=== PATIENT | female | born 1945 | race Caucasian/White ===

== ENCOUNTER → 2016-12-25 | Outpatient (CLI) | payer MEDICARE ==
--- NOTE | 2016-12-27 09:01 | MM ---
Reason for exam: screening (asymptomatic). Last mammogram was performed 3 years and 2 months ago. History: Patient is postmenopausal and is nulliparous. Family history of breast cancer in grandmother at age 82. Benign stereotactic core biopsy of the right breast, September 29, 2002. Core biopsy of the right breast. Took estrogen for 32 years. Physical Findings: A clinical breast exam by your physician is recommended on an annual basis and results should be correlated with mammographic findings. MG 3D Screening Mammo W/Cad Bilateral CC and MLO view(s) were taken. Prior study comparison: October 27, 2013, [facility] DIGITAL LEFT BREAST MAMMOGRAM w/CAD. October 16, 2013, bilateral digital screening mammo w/CAD. The breast tissue is heterogeneously dense. This may lower the sensitivity of mammography. Previous mammotome biopsy in the right breast. No significant changes when compared with prior studies. ASSESSMENT: Benign, BI-RAD 2 RECOMMENDATION: Routine screening mammogram of both breasts in 1 year.
== END | disposition home or self-care (01) ==
LOC: RADMAMWWP 14:36
PROVIDERS: ATTEND Internal Medicine
DX: Z12.31 Encounter for screening mammogram for malignant neoplasm of breast (principal)
CPT/HCPCS: 77063; G0202

== ENCOUNTER 2017-07-11 09:45 | Day surgery (SDC) | payer MEDICARE ==
[2017-07-10 12:09] VITALS: BMI 33.4
[~2017-07-11 09:45] MED LIST: LIDOCAINE 1% 20 ML VIAL (10MG/ML) FOR IV START INTRADERMA PRN
[2017-07-11 10:28] VITALS: RESP 16; TEMP 98.4
[2017-07-11] MEDS: LACTATED RINGERS 1,000 ML IV SCH ×2 (10:28→10:44)
[2017-07-11] MEDS ORDERED: MIDAZOLAM 2 MG/2 ML VIAL ONE (10:45)
[2017-07-11] MEDS ORDERED: PROPOFOL 10 MG/ML 20 ML VIAL IV ONE (10:45)
[2017-07-11] MEDS ORDERED: fentaNYL (PF) 50 MCG/ML 2 ML AMP ONE (10:45)
--- NOTE | 2017-07-11 11:08 | P.PCN ---
Date of Procedure: 07/11/17 Preoperative Diagnosis: Postoperative Diagnosis: Procedure(s) Performed: BRIEF HISTORY: Patient is a 72-year-old pleasant white female, scheduled for an elective colonoscopy as a part of screening for colonic neoplasia. PROCEDURE PERFORMED: Colonoscopy. PREOPERATIVE DIAGNOSIS: Screening for colon cancer. IV sedation per Anesthesia. PROCEDURE: After informed consent was obtained, the patient, was brought into the endoscopy unit. IV sedation was administered by Anesthesia under continuous monitoring. Digital rectal examination was normal. Initially the Olympus CF- 160 flexible video colonoscope was then inserted in the rectum, gradually advanced into the sigmoid colon and further advancement was not possible because of acute angulation in this area. The scope was removed and a pediatric colonoscope was then introduced into the rectum and gradually advanced into the cecum without any difficulty. Careful examination was performed as the scope was gradually being withdrawn. Ileocecal valve and the appendiceal orifice were visualized and appeared normal. Prep was excellent. Mucosa of the cecum, ascending colon, transverse colon, descending colon, sigmoid colon, and rectum appeared normal. Sigmoid diverticulosis seen. Retroflexion was performed in the rectum and no lesions were seen. The patient tolerated the procedure well. IMPRESSION: Normal-appearing colon from rectum to cecum with no evidence of colorectal neoplasia. Scattered sigmoid diverticulosis. RECOMMENDATIONS: Findings of this examination were discussed with the patient as well as her family. She was advised to have a repeat screening colonoscopy in 10 years. Implants: Indications for Procedure: Operative Findings: Description of Procedure:
[2017-07-11 11:58] VITALS: BP 141/79; PULSE 53
== END 2017-07-11 12:06 | disposition home or self-care (01) ==
LOC: ORWHC2ENDO 09:45
PROVIDERS: ATTEND Internal Medicine Gastroenterology
DX: Z12.11 Encounter for screening for malignant neoplasm of colon (principal); K57.30 Diverticulosis of large intestine without perforation or abscess without bleeding; Z88.2 Allergy status to sulfonamides; Z79.899 Other long term (current) drug therapy; Z88.1 Allergy status to other antibiotic agents

== ENCOUNTER 2019-04-25 09:56 | Emergency (ER) | payer MEDICARE ==
[2019-04-25 10:25] VITALS: BP 132/54; PULSE 53; RESP 16; TEMP 98.1
--- NOTE | 2019-04-25 10:55 | ED ---
General Adult HPI - General Chief complaint: Back Pain/Injury Stated complaint: poss rib pain/pulled muscle Time Seen by Provider: 04/25/19 10:16 Source: patient, RN notes reviewed Mode of arrival: ambulatory Limitations: no limitations - History of Present Illness Initial comments: Patient is a pleasant 74-year-old female presenting to the emergency Department with right sided rib discomfort. Patient states 3 days ago she was working in the yard and was putting a steak in the ground. Patient states she had sudden discomfort of her right lateral chest. Discomfort has been persistent since that time. Discomfort is increased with position changes and deep breaths. Discomfort also increases with cough. Patient has not coughed much. Patient d enies any dyspnea. No history of similar symptoms previously. No other areas of injury or concern. Patient denies anterior chest discomfort. No abdominal pain. No fevers. - Related Data Home Medications Medication Instructions Recorded Confirmed Melatonin 10 mg PO HS 12/26/14 04/25/19 Oxybutynin Chloride [Ditropan] 5 mg PO HS 12/26/14 04/25/19 Sertraline [Zoloft] 100 tab PO HS 12/26/14 04/25/19 Acetaminophen [Tylenol] 500 mg PO Q4-6H PRN 04/25/19 04/25/19 Excedrin Pm 2 tab PO HS 04/25/19 04/25/19 Multivitamins, Thera [Multivitamin 1 tab PO DAILY 04/25/19 04/25/19 (formulary)] Naproxen Sodium [Aleve] 440 mg PO Q12HR PRN 04/25/19 04/25/19 Previous Rx's Medication Instructions Recorded Orphenadrine [Norflex] 100 mg PO Q12H #12 tablet.er 04/25/19 Allergies Allergy/AdvReac Type Severity Reaction Status Date / Time erythromycin base Allergy Unknown Verified 04/25/19 10:55 Sulfa (Sulfonamide AdvReac Rash/Hives Verified 04/25/19 10:55 Antibiotics) sulfamethoxazole AdvReac Rash/Hives Verified 04/25/19 10:55 [From Bactrim] trimethoprim [From Bactrim] AdvReac Rash/Hives Verified 04/25/19 10:55 Review of Systems ROS Statement: Those systems with pertinent positive or pertinent negative responses have been documented in the HPI. ROS Other: All systems not noted in ROS Statement are negative. Constitutional: Denies: fever Eyes: Denies: eye pain ENT: Denies: ear pain Respiratory: Denies: cough, dyspnea Cardiovascular: Denies: chest pain Endocrine: Denies: fatigue Gastrointestinal: Denies: abdominal pain Genitourinary: Denies: dysuria Musculoskeletal: Reports: as per HPI Skin: Denies: rash Neurological: Denies: weakness Past Medical History Past Medical History: Fibromyalgia, Neurologic Disorder Additional Past Medical History / Comment(s): restless leg, herniated discs History of Any Multi-Drug Resistant Organisms: None Reported Past Surgical History: Appendectomy, Hernia Repair, Hysterectomy, Orthopedic Surgery Additional Past Surgical History / Comment(s): right foot surg., pain injections, sinus surg. Past Anesthesia/Blood Transfusion Reactions: Previous Problems w/ Anesthesia Additional Past Anesthesia/Blood Transfusion Reaction / Comment(s): stopped breathing w/anesthesia during pain injections @[facility].-will bring note from anesthesia from there Smoking Status: Never smoker - Past Family History Brother(s) Family Medical History: Cancer Father Additional Family Medical History / Comment(s): aortic aneurysm General Exam Limitations: no limitations General appearance: alert, in no apparent distress Head exam: Present: atraumatic, normocephalic Eye exam: Present: normal appearance, PERRL ENT exam: Present: normal oropharynx Neck exam: Present: normal inspection Respiratory exam: Present: normal lung sounds bilaterally, other (Patient does have discomfort right lateral rib somewhat posteriorly. This is near the seventh or eighth rib.) Cardiovascular Exam: Present: regular rate, normal rhythm Expanded Peripheral pulses: 2+: Radial (R), Radial (L), Dorsalis Pedis (R), Dorsalis Pedis (L) GI/Abdominal exam: Present: soft. Absent: distended, tenderness Extremities exam: Present: normal inspection. Absent: pedal edema, calf tenderness Back exam: Present: other (Mild tenderness right lateral/posterior seventh to eighth rib.) Neurological exam: Present: alert Psychiatric exam: Present: normal affect, normal mood Skin exam: Present: normal color Course Vital Signs 04/25/19 10:15 Temperature 98.1 F Pulse Rate 53 L Respiratory 16 Rate Blood Pressure 132/54 O2 Sat by Pulse 96 Oximetry Medical Decision Making - Medical Decision Making Patient reevaluated. Patient and family updated. - Radiology Data Radiology results: image reviewed (Chest x-ray shows no rib fracture. Minimal effusion on the right versus pleural reaction.) Disposition Clinical Impression: Rib sprain Disposition: HOME SELF-CARE Condition: Stable Instructions (If sedation given, give patient instructions): Chest Wall Pain (ED) Additional Instructions: Please follow-up with primary care physician in the next couple days for recheck. Return for any difficulty breathing, worsening symptoms or other concerns. Have primary care physician review chest x-ray. They may order repeat chest x-ray in the future. Continue [id number] Aleve as needed. Prescriptions: Orphenadrine [Norflex] 100 mg PO Q12H #12 tablet.er Is patient prescribed a controlled substance at d/c from ED?: No Referrals: Sameer Marcial MD [Primary Care Provider] - 1-2 days Time of Disposition: 11:42
--- NOTE | 2019-04-25 11:06 | XR ---
EXAMINATION TYPE: XR ribs RT w pa chest xray DATE OF EXAM: 04/25/2019 COMPARISON: 12/26/2014 HISTORY: Pain TECHNIQUE: Single view of the chest 4 views of the ribs are submitted. FINDINGS: The lungs are clear. No Evidence for pneumothorax. No evidence for focal contusion. Medi astinal structures are midline. Evaluation of the ribs fails to demonstrate evidence for displaced r ib fracture. There is a small pleural effusion noted versus pleural thickening. Occult rib fractures difficult to exclude. IMPRESSION: Evaluation of the ribs fails to demonstrate evidence for displaced rib fracture. There is a small pleural effusion noted versus pleural thickening. Occult rib fracture is difficult to exclud e.
[2019-04-25] MEDS ORDERED: ORPHENADRINE 30 MG/ML 2 ML VIAL IM STA (11:39)
== END 2019-04-25 12:26 | disposition home or self-care (01) ==
LOC: EC 09:56
DX: S23.41XA Sprain of ribs, initial encounter (principal); Z79.899 Other long term (current) drug therapy; Z88.1 Allergy status to other antibiotic agents; Z88.2 Allergy status to sulfonamides; X58.XXXA Exposure to other specified factors, initial encounter; Y93.H2 Activity, gardening and landscaping; Y92.007 Garden or yard of unspecified non-institutional (private) residence as the place of occurrence of the external cause
CPT/HCPCS: 71101; 99283; 96372; J2360

== ENCOUNTER → 2019-10-16 | Outpatient (CLI) | payer MEDICARE ==
--- NOTE | 2019-10-17 07:30 | BD ---
EXAMINATION TYPE: Axial Bone Density DATE OF EXAM: 10/16/2019 COMPARISON: 12.24.2007 CLINICAL HISTORY: 74 YR OLD FEMALE....ICD-10 CODE: Z78.0 POST MENOPAUSAL Height: 66 Weight: 165 FRAX RISK QUESTIONS: History of Fracture in Adulthood: YES Secondary Osteoporosis: YES 3. Menopause before 45: YES RISK FACTORS HISTORY OF: HX OF TOE FXS >50 YRS OF AGE Family History of Osteoporosis: NONE KNOWN Postmenopausal woman: YES AT AGE 27 TOTAL HYST. Take estrogen and/or progesterone medications: HRT IN PAST FOR 10 -15 YRS, NONE NOW Lost more than 2 inches in height since high school: YES Hyperparathyroidism: NO Adrenal Insufficiency: NO MEDICATIONS: Additional Medications: CITRULINE, REFLUX MEDS, VIT D, Additional History: FIBROMYALGIA, ARTHRITIS EXAM MEASUREMENTS: Bone mineral densitometry was performed using the [employer] System. Bone mineral density as measured about the Lumbar spine is: ----- L1-L4(G/cm2): 1.014 T Score Values are as follows: ----- L1: -2.6 ----- L2: -1.7 ----- L3: -0.7 ----- L4: -1.2 ----- L1-L4: -1.4 Bone mineral density has: Increased 4.4% since study of: 12.24.2007 Bone mineral density about the R hip (g/cm2): 0.736 Bone mineral density about the L hip (g/cm2): 0.723 T Score values are as follows: -----R Neck: -1.8 -----L Neck: -1.9 -----R Total: -2.2 -----L Total: -2.3 Bone mineral density has: Decreased -19.5% since study of: 12.24.2007 FRAX%s: THERE IS A 18.9% CHANCE FOR A MAJOR OSTEOPOROTIC FX AND A 4.1% FOR HIP......PROBABILITY FOR FX IN 10 YRS TIME IMPRESSION: Osteopenia lumbar spine and bilateral femora. NOTE: T-SCORE=SD OF THE YOUNG ADULT MEAN.
--- NOTE | 2019-10-20 10:39 | MM ---
Reason for exam: screening (asymptomatic). Last mammogram was performed 2 years and 10 months ago. History: Patient is postmenopausal and is nulliparous. Family history of breast cancer in grandmother at age 82. Benign stereotactic core biopsy of the right breast, September 29, 2002. Core biopsy of the right breast. Took hormonal contraceptives for 7 years. Took estrogen for 32 years. Physical Findings: A clinical breast exam by your physician is recommended on an annual basis and results should be correlated with mammographic findings. MG 3D Screening Mammo W/Cad Bilateral CC and MLO view(s) were taken. Prior study comparison: December 25, 2016, bilateral MG 3d screening mammo w/cad. October 27, 2013, [facility] DIGITAL LEFT BREAST MAMMOGRAM w/CAD. The breast tissue is heterogeneously dense. This may lower the sensitivity of mammography. No suspicious abnormality. No significant changes when compared with prior studies. ASSESSMENT: Negative, BI-RAD 1 RECOMMENDATION: Routine screening mammogram of both breasts in 1 year.
== END | disposition home or self-care (01) ==
LOC: RADMAMWWP 14:46
PROVIDERS: ATTEND Internal Medicine
DX: Z12.31 Encounter for screening mammogram for malignant neoplasm of breast (principal); M85.88 Other specified disorders of bone density and structure, other site; Z78.0 Asymptomatic menopausal state
CPT/HCPCS: 77063; 77067; 77080

== ENCOUNTER → 2021-03-10 | Outpatient (CLI) | payer MEDICARE ==
--- NOTE | 2021-03-14 14:01 | MM ---
Reason for exam: screening (asymptomatic). Last mammogram was performed 1 year and 5 months ago. History: Patient is postmenopausal and is nulliparous. Family history of breast cancer in grandmother at age 82 and breast cancer in sister at age 64. Benign stereotactic core biopsy of the right breast, September 29, 2002. Core biopsy of the right breast. Took hormonal contraceptives for 7 years. Took estrogen for 32 years. Physical Findings: A clinical breast exam by your physician is recommended on an annual basis and results should be correlated with mammographic findings. MG 3D Screening Mammo W/Cad Bilateral CC and MLO view(s) were taken. Prior study comparison: October 16, 2019, bilateral MG 3d screening mammo w/cad. December 25, 2016, bilateral MG 3d screening mammo w/cad. The breast tissue is heterogeneously dense. This may lower the sensitivity of mammography. Previous mammotome biopsy in the right breast. No significant changes when compared with prior studies. ASSESSMENT: Negative, BI-RAD 1 RECOMMENDATION: Routine screening mammogram of both breasts in 1 year.
== END | disposition home or self-care (01) ==
LOC: RADMAMWWP 13:17
PROVIDERS: ATTEND Internal Medicine
DX: Z12.31 Encounter for screening mammogram for malignant neoplasm of breast (principal); Z80.3 Family history of malignant neoplasm of breast; Z78.0 Asymptomatic menopausal state
CPT/HCPCS: 77063; 77067

== ENCOUNTER → 2021-06-17 | Outpatient (CLI) | payer MEDICARE ==
--- NOTE | 2021-06-17 17:32 | ECHOF ---
Referral Reason:[id number] dizziness MEASUREMENTS -------- HEIGHT: 172.7 cm WEIGHT: 81.2 kg BP: RVIDd: 2.2 cm (< 3.3) IVSd: 1.1 cm (0.6 - 1.1) LVIDd: 4.4 cm (3.9 - 5.3) LVPWd: 1.1 cm (0.6 - 1.1) IVSs: 1.9 cm LVIDs: 1.7 cm LVPWs: 2.2 cm LAESV Index (A-L): 24.61 ml/m Ao Diam: 3.0 cm (2.0 - 3.7) AV Cusp: 1.7 cm (1.5 - 2.6) LA Diam: 3.3 cm (2.7 - 3.8) MV EXCURSION: 14.991 mm (> 18.000) MV EF SLOPE: 118 mm/s (70 - 150) EPSS: 1.3 cm MV E Isael: 0.68 m/s MV DecT: 235 ms MV A Isael: 0.76 m/s MV E/A Ratio: 0.89 RAP: 5.00 mmHg RVSP: 20.21 mmHg FINDINGS -------- This was a technically good study. The left ventricular size is normal. Left ventricular wall thickness is normal. Overall left vent ricular systolic function is normal with, an EF between 55 - 60 %. Normal LAP Grade 1 Diastolic Dys function The right ventricle is normal in size. The left atrial size is normal. Normal LA size by volume 22+/-6 ml/m2. The right atrial size is normal. Interatrial and interventricular septum intact. Aortic valve is trileaflet and is mildly thickened. The mitral valve leaflets are mildly thickened. Moderate mitral regurgitation is present. There i s moderate posterior mitral valve prolapse. The tricuspid valve appears structurally normal. Mild tricuspid regurgitation present. Right vent ricular systolic pressure is normal at < 35 mmHg. There is no pulmonic regurgitation present. The aortic root size is normal. Normal inferior vena cava with normal inspiratory collapse consistent with estimated right atrial pre ssure of 5 mmHg. There is no pericardial effusion. CONCLUSIONS -------- 1. The left ventricular size is normal. 2. Left ventricular wall thickness is normal. 3. Overall left ventricular systolic function is normal with, an EF between 55 - 60 %. 4. Normal LAP Grade 1 Diastolic Dysfunction 5. Aortic valve is trileaflet and is mildly thickened. 6. The mitral valve leaflets are mildly thickened. 7. Moderate mitral regurgitation is present. 8. There is moderate posterior mitral valve prolapse. 9. Mild tricuspid regurgitation present. 10. There is no pericardial effusion. ADMINISTRATIVE SUPPORT ASSOC: Olena Mays RDCS
== END | disposition home or self-care (01) ==
LOC: RADECHMAIN 11:23
PROVIDERS: ATTEND Family Medicine
DX: I08.1 Rheumatic disorders of both mitral and tricuspid valves (principal)
CPT/HCPCS: 93306

== ENCOUNTER → 2022-07-07 | Outpatient (CLI) | payer MEDICARE ==
--- NOTE | 2022-07-10 08:59 | MM ---
Reason for Exam: Screening (asymptomatic). Last mammogram was performed 1 year(s) and 4 month(s) ago. Patient History: Menarche at age 14. Patient has no children. Left ovary removed at age 27. Right ovary removed at age 27. Hysterectomy at age 27. Postmenopausal. Patient used Estrogen for 32 years. Patient used Hormonal Contraceptives for 7 years. Core Biopsy on the Right side. 09/29/2002, Benign Stereotactic Core Biopsy on the right side. Maternal grandmother had breast cancer, age 82. Paternal cousin had breast cancer, age 72. Sister had breast cancer, age 64. Risk Values: Manjula 5 year model risk: 5.2%. NCI Lifetime model risk: 10.3%. Prior Study Comparison: 12/25/2016 Bilateral Screening Mammogram, [facility]. 10/16/2019 Bilateral Screening Mammogram, [facility]. 03/10/2021 Bilateral Screening Mammogram, [facility]. Tissue Density: The breast tissue is heterogeneously dense. This may lower the sensitivity of mammography. Findings: Analyzed By CAD. There is no suspicious group of microcalcifications or new suspicious mass in either breast. Previous mammotome biopsy in the right breast. No significant change from prior exams. Overall Assessment: Benign, BI-RAD 2 Management: Screening Mammogram of both breasts in 1 year. A clinical breast exam by your physician is recommended on an annual basis and results should be correlated with mammographic findings. Electronically signed and approved by: Genaro Escalera D.O.
== END | disposition home or self-care (01) ==
LOC: RADMAMWWP 14:27
PROVIDERS: ATTEND Family Medicine
DX: Z12.31 Encounter for screening mammogram for malignant neoplasm of breast (principal); Z78.0 Asymptomatic menopausal state; Z80.3 Family history of malignant neoplasm of breast
CPT/HCPCS: 77063; 77067

== ENCOUNTER 2022-10-05 14:26 | Observation (INO) | payer MEDICARE ==
--- NOTE | 2022-10-05 15:23 | ED ---
General Adult HPI - General Chief complaint: Chest Pain Stated complaint: Chest pain Time Seen by Provider: 10/05/22 14:36 Source: patient Mode of arrival: ambulatory Limitations: no limitations - History of Present Illness Initial comments: Dictation was produced using [employer] dictation software. please excuse any grammatical, word or spelling errors. Chief Complaint: 77-year-old female past medical history of fibromyalgia presents to the emergency department for chest pressure History of Present Illness: Patient is a 77-year-old female she has past medical history of mitral valve prolapse, fibromyalgia and reflux. Interval last 4 days she's been having intermittent bouts of chest pressure. She says is substernal radiates to her back. She states that is mild. Nonradiating. Not associated with nausea or diaphoresis. Patient is no history of coronary artery disease. She does complain of some mild exertional dyspnea. The ROS documented in this emergency department record has been reviewed and confirmed by me. Those systems with pertinent positive or negative responses have been documented in the HPI. All other systems are other negative and/or noncontributory. PHYSICAL EXAM: General Impression: Alert and oriented x3, not in acute distress HEENT: Normocephalic atraumatic, extra-ocular movements intact, pupils equal and reactive to light bilaterally, mucous membranes moist. Cardiovascular: Heart regular rate and rhythm Chest: Able to complete full sentences, no retractions, no tachypnea Abdomen: abdomen soft, non-tender, non-distended, no organomegaly Musculoskeletal: Pulses present and equal in all extremities, no peripheral edema Motor: no focal deficits noted Neurological: CN II-XII grossly intact, no focal motor or sensory deficits noted Skin: Intact with no visualized rashes Psych: Normal affect and mood ED course: 77-year-old female presents emergency department for shortness of breath and chest pressure clinical presentation is atypical with typical features. Vital signs upon arrival are within acceptable limits. EKG does not show any signs of ischemia or infarction. My EKG interpretation: Ventricular rate 55, sinus bradycardia,. Interval 154, care is 109, QTC 418. No OK prolongation, no QTC prolongation, no ST or T-wave changes noted. Overall, this EKG is unremarkable Laboratory evaluation obtained per it CBC, metabolic panel is unremarkable. Coag panel is negative. D-dimer 0.61 which is normal quite age-adjusted d- dimer. Troponin is negative. Chest x-ray is nonacute. Patient reevaluated at bedside at 6:20 PM found to be stable medical condition. Patient be admitted to observation for cardiac monitoring, cardiology consultation. Admitted to [facility] physician. - Related Data Home Medications Medication Instructions Recorded Confirmed Oxybutynin Chloride [Ditropan] 10 mg PO HS 12/26/14 10/05/22 Calcium(Unknown Dose) 1 tab PO DAILY 10/05/22 10/05/22 DULoxetine HCL [Cymbalta] 60 mg PO HS 10/05/22 10/05/22 Elderberry/Zinc/Vitamin D3 Chew 2 tab PO DAILY 10/05/22 10/05/22 Magnesium(Unknown Dose) 1 tab PO DAILY 10/05/22 10/05/22 Vitamin B Complex 1 cap PO DAILY 10/05/22 10/05/22 Vitamin D3(Unknown Dose) 2 cap PO DAILY 10/05/22 10/05/22 Allergies Allergy/AdvReac Type Severity Reaction Status Date / Time erythromycin base Allergy Unknown Verified 10/05/22 16:24 Sulfa (Sulfonamide Allergy Rash/Hives Verified 10/05/22 16:24 Antibiotics) & Nausea sulfamethoxazole Allergy Rash/Hives Verified 10/05/22 16:24 [From Bactrim] & Nausea trimethoprim [From Bactrim] Allergy Rash/Hives Verified 10/05/22 16:24 & Nausea Review of Systems ROS Statement: Those systems with pertinent positive or pertinent negative responses have been documented in the HPI. ROS Other: All systems not noted in ROS Statement are negative. Past Medical History Past Medical History: Fibromyalgia, GERD/Reflux, Neurologic Disorder Additional Past Medical History / Comment(s): restless leg, herniated discs History of Any Multi-Drug Resistant Organisms: None Reported Past Surgical History: Appendectomy, Hernia Repair, Hysterectomy, Orthopedic Surgery Additional Past Surgical History / Comment(s): right foot surg., pain injections, sinus surg. Past Anesthesia/Blood Transfusion Reactions: Previous Problems w/ Anesthesia Additional Past Anesthesia/Blood Transfusion Reaction / Comment(s): stopped breathing w/anesthesia during pain injections @[facility].-will bring note from anesthesia from there Smoking Status: Current every day smoker Past Alcohol Use History: None Reported Past Drug Use History: None Reported - Past Family History Brother(s) Family Medical History: Cancer Father Additional Family Medical History / Comment(s): aortic aneurysm General Exam Limitations: no limitations Course Vital Signs 10/05/22 10/05/22 10/05/22 14:30 15:45 15:50 Temperature 98.4 F Pulse Rate 63 56 L Respiratory 20 18 18 Rate Blood Pressure 154/86 130/81 O2 Sat by Pulse 96 96 Oximetry 10/05/22 10/05/22 17:00 18:20 Temperature Pulse Rate 55 L 52 L Respiratory 15 16 Rate Blood Pressure 140/51 137/82 O2 Sat by Pulse 99 100 Oximetry Medical Decision Making - Lab Data Result diagrams: 10/05/22 15:45 10/05/22 15:45 Lab Results 10/05/22 10/05/22 10/05/22 Range/Units 15:45 15:45 15:45 WBC 4.2 (3.8-10.6) k/uL RBC 3.80 (3.80-5.40) m/uL Hgb 12.8 (11.4-16.0) gm/dL Hct 37.2 (34.0-46.0) % MCV 97.9 (80.0-100.0) fL MCH 33.6 (25.0-35.0) pg MCHC 34.4 (31.0-37.0) g/dL RDW 11.9 (11.5-15.5) % Plt Count 162 (150-450) k/uL MPV 8.2 Neutrophils % 62 % Lymphocytes % 26 % Monocytes % 6 % Eosinophils % 2 % Basophils % 1 % Neutrophils # 2.6 (1.3-7.7) k/uL Lymphocytes # 1.1 (1.0-4.8) k/uL Monocytes # 0.3 (0-1.0) k/uL Eosinophils # 0.1 (0-0.7) k/uL Basophils # 0.0 (0-0.2) k/uL PT 10.1 (9.0-12.0) sec INR 0.9 (<1.2) APTT 22.5 (22.0-30.0) sec D-Dimer 0.61 H (<0.60) mg/L FEU Sodium 138 (137-145) mmol/L Potassium 4.4 (3.5-5.1) mmol/L Chloride 108 H (98-107) mmol/L Carbon Dioxide 25 (22-30) mmol/L Anion Gap 5 mmol/L BUN 19 H (7-17) mg/dL Creatinine 0.63 (0.52-1.04) mg/dL Est GFR (CKD-EPI)AfAm >90 (>60 ml/min/1.73 sqM) Est GFR (CKD-EPI)NonAf 87 (>60 ml/min/1.73 sqM) Glucose 98 (74-99) mg/dL Calcium 9.2 (8.4-10.2) mg/dL Total Bilirubin 0.2 (0.2-1.3) mg/dL AST 23 (14-36) U/L ALT 14 (4-34) U/L Alkaline Phosphatase 62 (38-126) U/L Troponin I (0.000-0.034) ng/mL Total Protein 6.2 L (6.3-8.2) g/dL Albumin 3.9 (3.5-5.0) g/dL 10/05/22 Range/Units 15:45 WBC (3.8-10.6) k/uL RBC (3.80-5.40) m/uL Hgb (11.4-16.0) gm/dL Hct (34.0-46.0) % MCV (80.0-100.0) fL MCH (25.0-35.0) pg MCHC (31.0-37.0) g/dL RDW (11.5-15.5) % Plt Count (150-450) k/uL MPV Neutrophils % % Lymphocytes % % Monocytes % % Eosinophils % % Basophils % % Neutrophils # (1.3-7.7) k/uL Lymphocytes # (1.0-4.8) k/uL Monocytes # (0-1.0) k/uL Eosinophils # (0-0.7) k/uL Basophils # (0-0.2) k/uL PT (9.0-12.0) sec INR (<1.2) APTT (22.0-30.0) sec D-Dimer (<0.60) mg/L FEU Sodium (137-145) mmol/L Potassium (3.5-5.1) mmol/L Chloride (98-107) mmol/L Carbon Dioxide (22-30) mmol/L Anion Gap mmol/L BUN (7-17) mg/dL Creatinine (0.52-1.04) mg/dL Est GFR (CKD-EPI)AfAm (>60 ml/min/1.73 sqM) Est GFR (CKD-EPI)NonAf (>60 ml/min/1.73 sqM) Glucose (74-99) mg/dL Calcium (8.4-10.2) mg/dL Total Bilirubin (0.2-1.3) mg/dL AST (14-36) U/L ALT (4-34) U/L Alkaline Phosphatase (38-126) U/L Troponin I <0.012 (0.000-0.034) ng/mL Total Protein (6.3-8.2) g/dL Albumin (3.5-5.0) g/dL Disposition Clinical Impression: Chest pain Disposition: ADMITTED IP TO THIS [facility] Condition: Fair Referrals: None,Stated [Primary Care Provider] - 1-2 days Decision Time: 18:22
--- NOTE | 2022-10-05 16:14 | XR ---
EXAMINATION TYPE: XR chest 2V DATE OF EXAM: 10/05/2022 COMPARISON: Chest x-ray April 25, 2019 HISTORY: Chest pressure and dyspnea. TECHNIQUE: Frontal and lateral views of the chest are obtained. FINDINGS: There is mild chronic parenchymal change bilaterally without suspicious focal air space op acity, pleural effusion, or pneumothorax seen. The cardiac silhouette size is upper limits of normal . Overlying EKG leads on current study. The osseous structures are somewhat demineralized. IMPRESSION: Chronic changes without acute pulmonary process.
[2022-10-05 16:24] LABS: Basophils % (A) 1 %; Eosinophils # (A) 0.1 k/uL (0-0.7); Eosinophils % (A) 2 %; HCT 37.2 % (34.0-46.0); HGB 12.8 gm/dL (11.4-16.0); Lymphocytes # (A) 1.1 k/uL (1.0-4.8); Lymphocytes % (A) 26 %; MCH 33.6 pg (25.0-35.0); MCHC 34.4 g/dL (31.0-37.0); MCV 97.9 fL (80.0-100.0); Mean Platelet Volume 8.2; Monocytes # (A) 0.3 k/uL (0-1.0); Monocytes % (A) 6 %; Neutrophils # (A) 2.6 k/uL (1.3-7.7); Neutrophils % (A) 62 %; Platelet Count 162 k/uL (150-450); RDW 11.9 % (11.5-15.5); WBC 4.2 k/uL (3.8-10.6)
[2022-10-05 16:41] LABS: INR 0.9 (<1.2); Partial Thromboplastin Time 22.5 sec (22.0-30.0); Prothrombin Time 10.1 sec (9.0-12.0)
[2022-10-05 16:43] LABS: ALT 14 U/L (4-34); AST 23 U/L (14-36); African American GFR (CKD) >90 (>60 ml/min/1.73 sqM); Albumin 3.9 g/dL (3.5-5.0); Alkaline Phosphatase 62 U/L (38-126); Anion Gap 5 mmol/L; Blood Urea Nitrogen 19 mg/dL (7-17); Calcium 9.2 mg/dL (8.4-10.2); Carbon Dioxide 25 mmol/L (22-30); Chloride 108 mmol/L (98-107); Glucose 98 mg/dL (74-99); Non-African American GFR(CKD) 87 (>60 ml/min/1.73 sqM); Potassium 4.4 mmol/L (3.5-5.1); Sodium 138 mmol/L (137-145); Total Bilirubin 0.2 mg/dL (0.2-1.3); Total Protein 6.2 g/dL (6.3-8.2)
[2022-10-05] MEDS ORDERED: NITROGLYCERIN SL TABS 0.4 MG TAB SUBLINGUAL PRN (18:20)
[2022-10-05] MEDS ORDERED: ASPIRIN 81 MG PO STA (18:20)
[2022-10-06] MEDS ORDERED: DULoxetine HCL 60 MG CAPSULE.DR PO SCH (00:15)
[2022-10-06] MEDS ORDERED: OXYBUTYNIN CHLORIDE 5 MG TAB PO SCH (00:15)
[2022-10-06] MEDS ORDERED: ATORVASTATIN 80 MG TAB PO SCH (02:42)
--- NOTE | 2022-10-06 02:43 | P.HPIM ---
History of Present Illness H&P Date: 10/05/22 The patient is a 77-year-old female with a PMH of recently diagnosed mitral valve prolapse, fibromyalgia, and GERD who presents to the emergency room with complaints of chest discomfort. The patient reports that she's been experiencing intermittent chest discomfort with a past 5-6 days. She reports it is located on her left upper chest, pressure and aching in nature, nonradiating, 5 out of 10 on maximal intensity, occurring several times daily, lasting for a few minutes at a time, nonexertional, with no alleviating or exacerbating features. She reports associated shortness of breath but denied nausea, vomiting, diaphoresis, palpitations. Denied fever, chills, cough, abdominal p ain, diarrhea. The EKG in the emergency room revealed sinus bradycardia at 55 bpm with left axis deviation. Chest x-ray was unremarkable. Laboratory evaluation revealed a troponin of less than 0.012 with d-dimer 0.61. Review of systems: Pertinent positives and negatives as discussed in HPI, a complete review of systems was performed and all other systems are negative. Physical examination: General: non toxic, no distress, appears at stated age, normal weight Derm: no unusual rashes/lesions, warm Head: atraumatic, normocephalic, symmetric Eyes: EOMI, no lid lag, anicteric sclera, pupils equal round reactive to light ENT: Nose and ears atraumatic Neck: No cervical lymphadenopathy, trachea midline, supple Mouth: no lip lesion, mucus membranes moist Cardiovascular: S1S2 reg, no murmur, positive dorsalis pedis pulse bilateral, no edema Lungs: CTA bilateral, no rhonchi, no rales, no accessory muscle use Abdominal: soft, nontender to palpation, no guarding Ext: muscle strength 5 out of 5 in all 4 extremities grossly, no gross muscle atrophy, no contractures, Neuro: CN II-XI grossly intact, no gross focal neuro deficits Psych: Alert, oriented, appropriate affect Assessment/plan Chest pain, rule out ACS -Cardiology consulted -Trend troponin -Cardiac monitoring -Continue with aspirin, statin Elevated d-dimer -Normal for age adjusted levels DVT prophylaxis -Heparin subcu The patient is admitted with an anticipated less than 2 midnight stay for evaluation of chest pain CODE STATUS: Full Code Discussed with: Patient Anticipated discharge date: in am Anticipated discharge place: Home Past Medical History Past Medical History: Chest Pain / Angina, Fibromyalgia, GERD/Reflux, Mitral Valve Prolapse (MVP), Neurologic Disorder Additional Past Medical History / Comment(s): restless leg, herniated d iscs,vertigo History of Any Multi-Drug Resistant Organisms: None Reported Past Surgical History: Appendectomy, Hernia Repair, Hysterectomy, Orthopedic Surgery Additional Past Surgical History / Comment(s): right foot surg., pain injections, sinus surg. Past Anesthesia/Blood Transfusion Reactions: Previous Problems w/ Anesthesia Additional Past Anesthesia/Blood Transfusion Reaction / Comment(s): stopped breathing w/anesthesia during pain injections @[facility]. Past Psychological History: Depression Smoking Status: Never smoker Past Alcohol Use History: None Reported Past Drug Use History: None Reported - Past Family History Brother(s) Family Medical History: Cancer Father Additional Family Medical History / Comment(s): aortic aneurysm Medications and Allergies Home Medications Medication Instructions Recorded Confirmed Type Oxybutynin Chloride [Ditropan] 10 mg PO HS 12/26/14 10/05/22 History Calcium(Unknown Dose) 1 tab PO DAILY 10/05/22 10/05/22 History DULoxetine HCL [Cymbalta] 60 mg PO HS 10/05/22 10/05/22 History Elderberry/Zinc/Vitamin D3 Chew 2 tab PO DAILY 10/05/22 10/05/22 History Magnesium(Unknown Dose) 1 tab PO DAILY 10/05/22 10/05/22 History Vitamin B Complex 1 cap PO DAILY 10/05/22 10/05/22 History Vitamin D3(Unknown Dose) 2 cap PO DAILY 10/05/22 10/05/22 History Allergies Allergy/AdvReac Type Severity Reaction Status Date / Time erythromycin base Allergy Unknown Verified 10/05/22 16:24 Sulfa (Sulfonamide Allergy Rash/Hives Verified 10/05/22 16:24 Antibiotics) & Nausea sulfamethoxazole Allergy Rash/Hives Verified 10/05/22 16:24 [From Bactrim] & Nausea trimethoprim [From Bactrim] Allergy Rash/Hives Verified 10/05/22 16:24 & Nausea Physical Exam Vitals: Vital Signs Temp Pulse Pulse Resp BP BP Pulse Ox 10/05/22 19:58 98.6 F 57 L 19 173/77 97 10/05/22 18:20 52 L 16 137/82 100 10/05/22 17:00 55 L 15 140/51 99 10/05/22 15:50 56 L 18 130/81 96 10/05/22 15:45 18 10/05/22 14:30 98.4 F 63 20 154/86 96 Intake and Output 10/05/22 10/05/22 10/06/22 14:59 22:59 06:59 Other: Weight 90.718 kg 90.718 kg Results CBC & Chem 7: 10/05/22 15:45 10/05/22 15:45 Labs: Abnormal Lab Results - Last 24 Hours (Table) 10/05/22 10/05/22 Range/Units 15:45 15:45 D-Dimer 0.61 H (<0.60) mg/L FEU Chloride 108 H (98-107) mmol/L BUN 19 H (7-17) mg/dL Total Protein 6.2 L (6.3-8.2) g/dL Thrombosis Risk Factor Assmnt - Choose All That Apply Any of the Below Risk Factors Present?: Yes Each Factor Represents 1 point: Obesity (BMI >25) Other Risk Factors: Yes Each Risk Factor Represents 3 Points: Age 75 years or older Other congenital or acquired thrombophilia - If yes, enter type in comment: No Thrombosis Risk Factor Assessment Total Risk Factor Score: 4 Thrombosis Risk Factor Assessment Level: Moderate Risk
[2022-10-06] MEDS ORDERED: HEPARIN SODIUM,PORCINE/PF 5,000 UNIT/0.5 ML SYRINGE SQ SCH (08:00)
[2022-10-06] MEDS ORDERED: CAFFEINE CITRATE 60 MG/3 ML VIAL IV PRN (08:05)
[2022-10-06] MEDS ORDERED: AMINOPHYLLINE 500 MG/20 ML VIAL IV PRN (08:05)
[2022-10-06] MEDS ORDERED: REGADENOSON 0.4 MG/5 ML SYRINGE IV PRN (08:05)
[2022-10-06 08:52] LABS: Chol/HDL Ratio 3.39 Ratio; LDL Cholesterol,Calculated 118.8 mg/dL (0.0-131.0)
[2022-10-06] MEDS ORDERED: ASPIRIN 325 MG TAB PO SCH (09:00)
[2022-10-06] MEDS ORDERED: ASPIRIN 81 MG PO SCH (09:00)
--- NOTE | 2022-10-06 09:23 | P.CRDCN ---
History of Present Illness History of present illness: HISTORY OF PRESENT ILLNESS: This is a 77-year-old female with a past medical history significant for mitral regurgitation and fibromyalgia. Patient follows in the office with Dr. Del Angel. We have been asked to see the patient in consultation for chest pain. Patient ex amined at the bedside. Patient presented to the emergency room a chief complaint of chest pain. She states she has been having chest discomfort for the past 4-5 days. She describes the pain as a pressure type sensation in the middle of her chest. She states it radiates in between her shoulder blades sometimes. She denies having associated shortness of breath. She does report the pain is worse with exertion. She denies a history of coronary artery disease. * EKG reveals sinus mechanism with no signs of acute ischemia * Chest xray chronic changes without acute pulmonary process * Laboratory data: WBC 4.2. Hemoglobin 12.8. Platelet count 162. * Current home cardiac medications include none * Most recent echocardiogram obtained in May 2021 revealed ejection fraction 55-60% with moderate mitral regurgitation, moderate posterior mitral valve prolapse, and mild tricuspid regurgitation * Patient during Lexiscan stress test in August 2021 which was negative for ischemia REVIEW OF SYSTEMS: At the time of my exam: CONSTITUTIONAL: Denies fever or chills. HEENT: Denies blurred vision, vision changes, or eye pain. Denies hemoptysis CARDIOVASCULAR: Denies chest pain. Denies orthopnea. Denies PND. Denies palpitations RESPIRATORY: Denies shortness of breath. GASTROINTESTINAL: Denies abdominal pain. Denies nausea or vomiting. HEMATOLOGIC: Denies bleeding disorders. GENITOURINARY: Denies any blood in urine. SKIN: Denies pruitis. Denies rash. PHYSICAL EXAM: VITAL SIGNS: Reviewed. GENERAL: Well-developed in no acute distress. HEENT: Head is normocephalic. Pupils are equal, round. Sclerae anicteric. Mucous membranes of the mouth are moist. Neck supple. No JVD or thyromegaly LUNGS: Respirations even and unlabored. Lungs essentially clear to auscultation bilaterally. HEART: Regular rate and rhythm. S1 and S2 heard. Systolic murmur noted ABDOMEN: Soft. Nondistended. Nontender. EXTREMITIES: Normal range of motion. No clubbing or cyanosis. Peripheral pulses intact. No lower extremity edema NEUROLOGIC: Awake and alert. Oriented x 3. ASSESSMENT: Chest pain, troponins negative 3 Mitral regurgitation Fibromyalgia PLAN: An acute coronary event has been ruled out Obtain 2-D echo to assess cardiac structure and function Decrease aspirin to 81 mg daily Patient will undergo Lexiscan stress test today. If negative, she may be discharged home from a cardiac standpoint Nurse practitioner note has been reviewed by physician. Signing provider agrees with the documented findings, assessment, and plan of care. Past Medical History Past Medical History: Chest Pain / Angina, Fibromyalgia, GERD/Reflux, Mitral Valve Prolapse (MVP), Neurologic Disorder Additional Past Medical History / Comment(s): restless leg, herniated discs,vertigo History of Any Multi-Drug Resistant Organisms: None Reported Past Surgical History: Appendectomy, Hernia Repair, Hysterectomy, Orthopedic Surgery Additional Past Surgical History / Comment(s): right foot surg., pain injections, sinus surg. Past Anesthesia/Blood Transfusion Reactions: Previous Problems w/ Anesthesia Additional Past Anesthesia/Blood Transfusion Reaction / Comment(s): stopped breathing w/anesthesia during pain injections @[facility]. Past Psychological History: Depression Smoking Status: Never smoker Past Alcohol Use History: None Reported Past Drug Use History: None Reported - Past Family History Brother(s) Family Medical History: Cancer Father Additional Family Medical History / Comment(s): aortic aneurysm Medications and Allergies Home Medications Medication Instructions Recorded Confirmed Type Oxybutynin Chloride [Ditropan] 10 mg PO HS 12/26/14 10/05/22 History Calcium(Unknown Dose) 1 tab PO DAILY 10/05/22 10/05/22 History DULoxetine HCL [Cymbalta] 60 mg PO HS 10/05/22 10/05/22 History Elderberry/Zinc/Vitamin D3 Chew 2 tab PO DAILY 10/05/22 10/05/22 History Magnesium(Unknown Dose) 1 tab PO DAILY 10/05/22 10/05/22 History Vitamin B Complex 1 cap PO DAILY 10/05/22 10/05/22 History Vitamin D3(Unknown Dose) 2 cap PO DAILY 10/05/22 10/05/22 History Allergies Allergy/AdvReac Type Severity Reaction Status Date / Time erythromycin base Allergy Unknown Verified 10/05/22 16:24 Sulfa (Sulfonamide Allergy Rash/Hives Verified 10/05/22 16:24 Antibiotics) & Nausea sulfamethoxazole Allergy Rash/Hives Verified 10/05/22 16:24 [From Bactrim] & Nausea trimethoprim [From Bactrim] Allergy Rash/Hives Verified 10/05/22 16:24 & Nausea Physical Exam Vitals: Vital Signs Temp Pulse Pulse Resp BP BP Pulse Ox 10/06/22 07:00 97.9 F 48 L 14 146/68 97 10/06/22 02:08 97.9 F 57 L 17 147/62 97 10/05/22 19:58 98.6 F 57 L 19 173/77 97 10/05/22 18:20 52 L 16 137/82 100 10/05/22 17:00 55 L 15 140/51 99 10/05/22 15:50 56 L 18 130/81 96 10/05/22 15:45 18 10/05/22 14:30 98.4 F 63 20 154/86 96 Intake and Output 10/05/22 10/06/22 10/06/22 22:59 06:59 14:59 Other: # Voids 1 1 Weight 90.718 kg Results 10/05/22 15:45 10/05/22 15:45 Cardiac Enzymes 10/05/22 10/05/22 10/05/22 Range/Units 15:45 15:45 19:01 AST 23 (14-36) U/L Troponin I <0.012 <0.012 (0.000-0.034) ng/mL 10/05/22 Range/Units 22:44 AST (14-36) U/L Troponin I <0.012 (0.000-0.034) ng/mL Coagulation 10/05/22 Range/Units 15:45 PT 10.1 (9.0-12.0) sec APTT 22.5 (22.0-30.0) sec CBC 10/05/22 Range/Units 15:45 WBC 4.2 (3.8-10.6) k/uL RBC 3.80 (3.80-5.40) m/uL Hgb 12.8 (11.4-16.0) gm/dL Hct 37.2 (34.0-46.0) % Plt Count 162 (150-450) k/uL Comprehensive Metabolic Panel 10/05/22 Range/Units 15:45 Sodium 138 (137-145) mmol/L Potassium 4.4 (3.5-5.1) mmol/L Chloride 108 H (98-107) mmol/L Carbon Dioxide 25 (22-30) mmol/L BUN 19 H (7-17) mg/dL Creatinine 0.63 (0.52-1.04) mg/dL Glucose 98 (74-99) mg/dL Calcium 9.2 (8.4-10.2) mg/dL AST 23 (14-36) U/L ALT 14 (4-34) U/L Alkaline Phosphatase 62 (38-126) U/L Total Protein 6.2 L (6.3-8.2) g/dL Albumin 3.9 (3.5-5.0) g/dL Current Medications Generic Name Dose Route Start Last Admin Trade Name Freq PRN Reason Stop Dose Admin Aspirin 325 mg 10/06/22 09:00 Aspirin 325 Mg Tab PO DAILY [facility] Atorvastatin Calcium 80 mg 10/06/22 02:42 10/06/22 03:31 Atorvastatin 80 Mg Tab PO Not Given HS JULEE Duloxetine HCl 60 mg 10/06/22 00:15 10/06/22 00:29 Duloxetine Hcl 60 Mg Capsule.Dr PO 60 mg HS JULEE Administration Heparin Sodium (Porcine) 5,000 unit 10/06/22 08:00 Heparin Sodium,Porcine/Pf 5,000 Unit/0.5 Ml Syringe SQ Q8HR JULEE Nitroglycerin 0.4 mg 10/05/22 18:20 Nitroglycerin Sl Tabs 0.4 Mg Tab SUBLINGUAL Q5M PRN Chest Pain Oxybutynin Chloride 10 mg 10/06/22 00:15 10/06/22 00:29 Oxybutynin Chloride 5 Mg Tab PO 10 mg HS JULEE Administration Intake and Output 10/05/22 10/06/22 10/06/22 22:59 06:59 14:59 Other: # Voids 1 1 Weight 90.718 kg 10/05/22 15:45 10/05/22 15:45
--- NOTE | 2022-10-06 11:38 | NM ---
EXAMINATION TYPE: NM stress lexiscan cardiolite DATE OF EXAM: 10/06/2022 COMPARISON: NONE HISTORY: Chest pain. Family history of heart attack. TECHNIQUE: After the intravenous administration of 10 mCi Tc 99m Sestamibi - Cardiolite resting SPEC T images acquired 50 minutes post injection. The patient received 0.4mg Lexiscan, 24.5 mCi Tc 99m Sestamibi - Stress images obtained [address] injection FINDINGS: Review of stress and rest SPECT images demonstrates no distinct perfusion abnormality. Gated analysi s shows normal wall motion with an estimated left ventricular ejection fraction of 61 %. IMPRESSION: No scintigraphic evidence for reversible ischemia.
[2022-10-06 14:10] VITALS: BP 129/70; PULSE 60; RESP 15; TEMP 98.1
--- NOTE | 2022-10-06 14:22 | P.DS ---
Providers Date of admission: 10/05/22 18:20 Expected date of discharge: 10/06/22 Attending physician: Edilson Castano MD Consults: 10/05/22 18:20 Consult Physician Urgent Consulting Provider: Daniel Shukla Consult Reason/Comments: chest pain Do you want consulting provider notified?: Yes Primary care physician: Stated None Hospital Course: Discharge Diagnosis: Acute chest pain Fibromyalgia GERD Hospital Course: 77-year-old female with a PMH of recently diagnosed mitral valve prolapse, fibromyalgia, and GERD presented with chest discomfort. EKG showed sinus bradycardia with left axis deviation. Chest x-ray showed no acute process. Troponin negative. D-dimer elevated, but normal for age. Cardiology consulted. Stress test negative. Echo report not available at discharge. However, stress test showed normal wall motion with an estimated LVEF of 61%. Patient cleared for discharge per cardiology. Patient seen and examined at bedside. Vital signs reviewed and stable. General: nontoxic, no distress, appears at stated age Derm: warm, dry Head: atraumatic, normocephalic, symmetric Eyes: EOMI, no lid lag, anicteric sclera Mouth: no lip lesion, mucus membranes moist Cardiovascular: S1S2 reg, no murmur Lungs: CTA bilateral, no rhonchi, no rales , no accessory muscle use Abdominal: soft, nontender to palpation, no guarding, no appreciable organomegaly Ext: no gross muscle atrophy, no edema, no contractures Neuro: CN II-XI grossly intact, no focal neuro deficits Psych: Alert, oriented, appropriate affect A total of 41 minutes of time were spent preparing this complex discharge summary. Patient was discharged on 10/06/22 at 14:19. Patient Condition at Discharge: Stable Plan - Discharge Summary New Discharge Prescriptions: Continue Oxybutynin Chloride [Ditropan] 10 mg PO HS Calcium(Unknown Dose) 1 tab PO DAILY Magnesium(Unknown Dose) 1 tab PO DAILY Elderberry/Zinc/Vitamin D3 Chew 2 tab PO DAILY Vitamin B Complex 1 cap PO DAILY Vitamin D3(Unknown Dose) 2 cap PO DAILY DULoxetine HCL [Cymbalta] 60 mg PO HS Discharge Medication List Oxybutynin Chloride [Ditropan] 10 mg PO HS 12/26/14 [History] Calcium(Unknown Dose) 1 tab PO DAILY 10/05/22 [History] DULoxetine HCL [Cymbalta] 60 mg PO HS 10/05/22 [History] Elderberry/Zinc/Vitamin D3 Chew 2 tab PO DAILY 10/05/22 [History] Magnesium(Unknown Dose) 1 tab PO DAILY 10/05/22 [History] Vitamin B Complex 1 cap PO DAILY 10/05/22 [History] Vitamin D3(Unknown Dose) 2 cap PO DAILY 10/05/22 [History] Follow up Appointment(s)/Referral(s): Randy Del Angel MD [STAFF PHYSICIAN] - 1 Week None,Stated [Primary Care Provider] - 1-2 days Patient Instructions/Handouts: Chest Pain (DC) Activity/Diet/Wound Care/Special Instructions: Please see your PCP and rope machine setter as soon as possible. Discharge Disposition: HOME SELF-CARE
--- NOTE | 2022-10-06 17:53 | CA ---
Transthoracic Echo Report Name: Rebecca Lafleur Age: 77 Gender: F : 1945 Exam Date: 10/06/2022 10:54 Exam Location: [place] Echo Ht (in): 68 Wt (lb): 200 Ordering Physician: Sonia Fournier Attending/Referring Phys: [id number], Shantanu Educational Manager Jory Crespo RDCS Procedure CPT: Indications: LV function Cardiac Hx: Technical Quality: Fair Contrast 1: Total Dose (mL): Contrast 2: Total Dose (mL): MEASUREMENTS (Male / Female) Normal Values 2D ECHO LV Diastolic Diameter PLAX 4.7 cm 4.2 - 5.9 / 3.9 - 5.3 cm LV Systolic Diameter PLAX 2.5 cm IVS Diastolic Thickness 1.1 cm 0.6 - 1.0 / 0.6 - 0.9 cm LVPW Diastolic Thickness 1.3 cm 0.6 - 1.0 / 0.6 - 0.9 cm LV Relative Wall Thickness 0.5 RV Internal Dim ED PLAX 2.8 cm LA Volume 57.2 cm??? 18 - 58 / 22 - 52 cm??? M-MODE Aortic Root Diameter MM 3.2 cm LA Systolic Diameter MM 3.8 cm LA Ao Ratio MM 1.2 AV Cusp Separation MM 2.1 cm DOPPLER AV Peak Velocity 133.8 cm/s AV Peak Gradient 7.2 mmHg AV Mean Velocity 93.0 cm/s AV Mean Gradient 3.8 mmHg AV Velocity Time Integral 29.4 cm LVOT Peak Velocity 144.0 cm/s LVOT Peak Gradient 8.3 mmHg LVOT Velocity Time Integral 30.9 cm MV Area PHT 3.4 cm??? Mitral E Point Velocity 71.3 cm/s Mitral A Point Velocity 53.4 cm/s Mitral E to A Ratio 1.3 MV Deceleration Time 223.5 ms MV E' Velocity 7.2 cm/s Mitral E to MV E' Ratio 9.8 TR Peak Velocity 251.8 cm/s TR Peak Gradient 25.4 mmHg Right Ventricular Systolic Press 29.5 mmHg FINDINGS Left Ventricle Mildly increased left ventricular wall thickness. Normal left ventricular systolic function with no obvious regional wall motion abnormalities. Left ventricular ejection fraction is estimated at 55-60 %. Right Ventricle Normal right ventricular size and function. Right ventricular systolic pressure within normal limits. Right Atrium Normal right atrial size. Left Atrium Mildly increased left atrial volume. Mitral Valve Structurally normal mitral valve. Mild mitral annular calcification. Moderate mitral regurgitation. Aortic Valve Trileaflet aortic valve. No aortic regurgitation. Thickened aortic valve without stenosis. Tricuspid Valve Structurally normal tricuspid valve. Mild tricuspid regurgitation. Pulmonic Valve Trace pulmonic regurgitation. Pericardium No pericardial effusion. Aorta Normal size aortic root and proximal ascending aorta. CONCLUSIONS Normal left ventricle systolic function Moderate mitral regurgitation Previewed by: Dr. Daniel Shukla MD (Electronically Signed) Final Date: 06 October 2022 17:52
--- NOTE | 2022-10-06 18:32 | CA ---
Lexiscan Nuclear Stress Test Report Name: Rebecca Lafleur Exam Date: 10/06/2022 09:37 Exam Location: [place] Stress Ht (in): 68 Wt (lb): 200 BSA: 2.04 Ordering Phys: Sonia Fournier Referring Phys: SERGIO,, Technologist: Jose Mullins Age: 77 Gender: F : 1945 Procedure CPT: Indications: Reflex order-Stress test ICD-10 Codes: Patient History: Medications: Meds past 24 hrs: Pretest Chest Pain: STRESS TEST Lexiscan Protocol Exercise Duration (min:sec): 02:[address] Depressions (mm): Angina Score: Pollack Score: Resting HR (bpm): 54 Peak HR (bpm): 79 Resting BP (mmHg): 152 / 78 Peak BP (mmHg): 158 / 70 MPHR: 144 Target HR: 122 % MPHR: 55 METS: 1.0 Total Dose: Peak Dose: Atropine: Double Product: 31220 BP Response: Stress Termination: Infusion complete Stress Symptoms: Nausea and Headache Stress Summary: ECG ANALYSIS Resting ECG: Stress ECG: CONCLUSIONS Non-diagnostic electrocardiogram in response to Lexiscan Dr. Daniel Shukla MD (Electronically Signed) Final Date: 06 October 2022 18:31
== END 2022-10-06 15:05 | disposition home or self-care (01) ==
LOC: EC 14:26 → 6NMEDSUR 18:20
PROVIDERS: ADMIT Student in an Organized Health Care Education/Training Program; ATTEND Student in an Organized Health Care Education/Training Program
DX: R07.89 Other chest pain (principal); M79.7 Fibromyalgia; K21.9 Gastro-esophageal reflux disease without esophagitis; F17.200 Nicotine dependence, unspecified, uncomplicated; G25.81 Restless legs syndrome; F32.A Depression, unspecified; I08.1 Rheumatic disorders of both mitral and tricuspid valves; I37.1 Nonrheumatic pulmonary valve insufficiency; Z79.899 Other long term (current) drug therapy; Z88.2 Allergy status to sulfonamides; Z90.710 Acquired absence of both cervix and uterus; Z80.9 Family history of malignant neoplasm, unspecified; Z82.49 Family history of ischemic heart disease and other diseases of the circulatory system
CPT/HCPCS: 96372; 99285; 36415; 93005; 93017; 93306; 85379; 83880; 80061; 80053; 84484; 85025; 85610; 85730; 71046; 78452; G0378 ×2; A9500; J2785; J1644

== ENCOUNTER → 2023-04-30 | Outpatient (CLI) | payer MEDICARE ==
--- NOTE | 2023-04-30 18:28 | CT ---
EXAMINATION TYPE: CT brain cspine wo con CT DLP: 1505.1 mGycm, Automated exposure control for dose reduction was used. DATE OF EXAM: 04/30/2023 6:07 PM COMPARISON: 04/07/2010 CLINICAL INDICATION:Female, 78 years old with history of R51.9; fall, dizziness hit head x1 week ago TECHNIQUE: Brain: Multiple axial CT images of the brain were obtained without IV contrast. Cspine: Axial CT images from the skull base to the inferior aspect of T2 we obtained without intraven ous contrast. Coronal and sagittal reformatted images were also reviewed. FINDINGS: Brain: Extra-axial spaces: No abnormal extra-axial fluid collections. Ventricular system: Within normal limits Cerebral parenchyma: No acute intraparenchymal hemorrhage or mass effect. The peters-white junction is well differentiated. Cerebellum: Unremarkable. Mass effect: No evidence of midline shift. Intracranial vasculature: Atherosclerotic calcifications of the intracranial vessels. Soft tissues: Normal. Calvarium/osseous structures: No depressed skull fracture. Paranasal sinuses and mastoid air cells: Clear. Visualized orbits: Orbital contents are intact. Cervical spine: Fracture: None. Osseous structures: Multilevel degenerative disc disease changes with endplate spurring and disc oste ophyte complex's. Vertebral alignment: Within normal limits. Spinal canal/Neural Foramina: Disc osteophyte complexes at C4-C5 with at least mild spinal canal sten osis. Facet joint uncovertebral joint arthropathy scattered throughout the cervical spine with varyin g degrees of neural foraminal stenosis. Neck soft tissues: Prevertebral soft tissues are within normal limits. Other: The airway is patent. The lung apices are clear. IMPRESSION: 1. No acute intracranial process. Asymmetric is some atelectasis starts 2. No evidence of cervical spine fracture. 3. Mild multilevel degenerative disc disease.
== END | disposition home or self-care (01) ==
LOC: RADCTMAIN 16:47
PROVIDERS: ATTEND Internal Medicine
DX: M50.321 Other cervical disc degeneration at C4-C5 level (principal); J98.11 Atelectasis; R51.9 Headache, unspecified; R42 Dizziness and giddiness; W19.XXXA Unspecified fall, initial encounter
CPT/HCPCS: 70450; 72125

== ENCOUNTER → 2023-05-16 | Outpatient (CLI) | payer MEDICARE ==
[2023-05-16 11:39] LABS: Basophils % (A) 0 %; Eosinophils # (A) 0.1 k/uL (0-0.7); Eosinophils % (A) 2 %; HCT 40.9 % (34.0-46.0); HGB 13.2 gm/dL (11.4-16.0); Lymphocytes # (A) 0.8 k/uL (1.0-4.8); Lymphocytes % (A) 20 %; MCH 32.8 pg (25.0-35.0); MCHC 32.2 g/dL (31.0-37.0); MCV 101.9 fL (80.0-100.0); Mean Platelet Volume 7.9; Monocytes # (A) 0.2 k/uL (0-1.0); Monocytes % (A) 5 %; Neutrophils # (A) 2.8 k/uL (1.3-7.7); Neutrophils % (A) 73 %; Platelet Count 192 k/uL (150-450); RBC 4.02 m/uL (3.80-5.40); RDW 12.3 % (11.5-15.5); WBC 3.8 k/uL (3.8-10.6)
[2023-05-16 12:01] LABS: ALT 15 U/L (4-34); AST 25 U/L (14-36); African American GFR (CKD) >90 (>60 ml/min/1.73 sqM); Albumin 4.1 g/dL (3.5-5.0); Albumin/Globulin Ratio 1.4; Alkaline Phosphatase 76 U/L (38-126); Anion Gap 7 mmol/L; Blood Urea Nitrogen 13 mg/dL (7-17); Calcium 9.5 mg/dL (8.4-10.2); Carbon Dioxide 26 mmol/L (22-30); Chloride 107 mmol/L (98-107); Globulin 2.9 g/dL; Glucose 96 mg/dL (74-99); Non-African American GFR(CKD) 88 (>60 ml/min/1.73 sqM); Potassium 5.8 mmol/L (3.5-5.1); Sodium 140 mmol/L (137-145); Total Bilirubin 0.7 mg/dL (0.2-1.3)
[2023-05-17 01:17] LABS: Chol/HDL Ratio 2.96 Ratio; LDL Cholesterol,Calculated 140.3 mg/dL (0.0-131.0); T4, Free (Free Thyroxine) 0.93 ng/dL (0.80-1.80)
== END | disposition home or self-care (01) ==
LOC: LABWHC1 10:09
PROVIDERS: ATTEND Internal Medicine
DX: Z00.00 Encounter for general adult medical examination without abnormal findings (principal); Z11.59 Encounter for screening for other viral diseases
CPT/HCPCS: 36415; 80053; 80061; 84439; 84443; 85025; 86803

== ENCOUNTER → 2023-05-22 | Outpatient (CLI) | payer MEDICARE ==
[2023-05-22 15:54] LABS: BUN/Creat Ratio 21.56 Ratio (12.00-20.00); Blood Urea Nitrogen 19.4 mg/dL (9.0-27.0); Calcium 9.8 mg/dL (8.7-10.3); Carbon Dioxide 22.2 mmol/L (21.6-31.8); Chloride 105 mmol/L (96-109); Glucose 98 mg/dL (70-110); Potassium 4.4 mmol/L (3.5-5.5); Sodium 140 mmol/L (135-145); T4, Free (Free Thyroxine) 0.99 ng/dL (0.80-1.80)
== END | disposition home or self-care (01) ==
LOC: LABWHC1 08:57
PROVIDERS: ATTEND Internal Medicine Interventional Cardiology
DX: M79.7 Fibromyalgia (principal)
CPT/HCPCS: 36415; 80048; 84439; 84443

== ENCOUNTER → 2023-08-27 | Outpatient (CLI) | payer MEDICARE ==
--- NOTE | 2023-08-27 11:20 | BD ---
EXAMINATION TYPE: Axial Bone Density DATE OF EXAM: 08/27/2023 CLINICAL HISTORY: 78 years old Female. ICD-10 CODE: Z78.0 Postmenopausal Height: 67" Weight: 208.6lbs FRAX RISK QUESTIONS: Alcohol (3 or more units per day): No Family History (Parent hip fracture): No Glucocorticoids (More than 3mos): No (Ex: prednisone, prednisolone, methylprednisolone, dexamethasone, and hydrocortisone). History of Fracture in Adulthood: Yes, toes Secondary Osteoporosis: 1. Type 1 Diabetes: No 2. Hyperthyroidism: No 3. Menopause before 45: Yes, 25 4. Malnutrition: No 5. Chronic liver disease: No Rheumatoid Arthritis: No Current Tobacco Use: No RISK FACTORS HISTORY OF: Hip Fracture (Right/Left): No Spine Fracture: No History of Wrist Fracture: No Surgery to Spine/Hip(right/left)/Wrist (right/left): No Family History of Osteoporosis: No Active: No Diet low in dairy products/other sources of calcium: No Postmenopausal woman: Yes Lost more than 2 inches in height since high school: No Frequent falls: No Poor Health: No Hyperparathyroidism: No Adrenal Insufficiency: No MEDICATIONS: Prednisone or other steroids: No Thyroid Medications: No Osteoporosis Medications: No Additional Medications: Cholesterol meds, anti-depressant, Vitamin D3, Calcium Additional History: None EXAM MEASUREMENTS: Bone mineral densitometry was performed using the [email or web address] System. Bone mineral density as measured about the Lumbar spine is: ----- L1-L4(G/cm2): 1.024 T Score Values are as follows: ----- L1: -2.3 ----- L2: -1.9 ----- L3: -0.6 ----- L4: -0.9 ----- L1-L4: -1.3 Z Score Values are as follows: ----- L1: -1.5 ----- L2: -1.1 ----- L3: 0.2 ----- L4: -0.1 ----- L1-L4: -0.5 Bone mineral density has: increased 1.0% since study of: 10/16/2019 Bone mineral density about the R hip (g/cm2): 0.754 Bone mineral density about the L hip (g/cm2): 0.720 T Score values are as follows: -----R Neck: -1.6 -----L Neck: -1.9 -----R Total: -2.0 -----L Total: -2.3 Z Score values are as follows: -----R Neck: -0.2 -----L Neck: -0.6 -----R Total: -0.9 -----L Total: -1.1 Bone mineral density has: increased 1.0% since study of: 10/16/2019 FRAX%s: The graph provided illustrates a 13.5% chance for a major osteoporotic fx and a 3.5% chance f or the hips probability for fx in 10 years time. IMPRESSION: Osteopenia (T Score between -2.5 and -1). There is slightly increased risk of fracture and the patient may be considered for treatment. Re-Screen 2-5 years. NOTE: T-SCORE=SD OF THE YOUNG ADULT MEAN.
--- NOTE | 2023-08-28 20:50 | MM ---
Reason for Exam: Screening (asymptomatic). Last mammogram was performed 1 year(s) and 2 month(s) ago. Patient History: Menarche at age 14. Patient has no children. Left ovary removed at age 27. Right ovary removed at age 27. Hysterectomy at age 27. Postmenopausal. Patient used Estrogen for 32 years. Patient used Hormonal Contraceptives for 7 years. Core Biopsy on the Right side. 09/29/2002, Benign Stereotactic Core Biopsy on the right side. Maternal grandmother had breast cancer, age 82. Paternal cousin had breast cancer, age 72. Sister had breast cancer, age 64. Sister had breast cancer at or over age 50. Risk Values: Manjula 5 year model risk: 8.9%. NCI Lifetime model risk: 16.3%. Prior Study Comparison: 10/16/2013 Bilateral Screening Mammogram, [facility]. 10/27/2013 Left Diagnostic Mammogram, [facility]. 12/25/2016 Bilateral Screening Mammogram, [facility]. 10/16/2019 Bilateral Screening Mammogram, [facility]. 03/10/2021 Bilateral Screening Mammogram, [facility]. 07/07/2022 Bilateral MG 3D screening mammo w/cad, [facility]. Tissue Density: The breast tissue is heterogeneously dense. This may lower the sensitivity of mammography. Findings: Analyzed By CAD. Chronic nodularity medially in the right breast. Microclip right breast from prior biopsy. There is no suspicious group of microcalcifications or new suspicious mass in either breast. Overall Assessment: Benign, BI-RAD 2 Management: Screening Mammogram of both breasts in 1 year. See note below in regards to patient's increased 5 year Manjula score. Patient should continue monthly self-breast exams. A clinical breast exam by your physician is recommended on an annual basis. This exam should not preclude additional follow-up of suspicious palpable abnormalities. Note on Manjula scores and lifetime risk: 1. A Manjula score greater than 3% is considered moderate risk. If this is the case, consider specialist referral to assess eligibility for a risk reducing agent. 2. If overall lifetime risk for the development of breast cancer is 20% or higher, the patient may qualify for future screening with alternating mammogram and breast MRI. Electronically signed and approved by: Kenny Galvan M.D. Radiologist
== END | disposition home or self-care (01) ==
LOC: RADBDWWP 10:48
PROVIDERS: ATTEND Internal Medicine
DX: Z12.31 Encounter for screening mammogram for malignant neoplasm of breast (principal); Z13.820 Encounter for screening for osteoporosis; M85.89 Other specified disorders of bone density and structure, multiple sites; Z78.0 Asymptomatic menopausal state; Z80.3 Family history of malignant neoplasm of breast
CPT/HCPCS: 77063; 77067; 77080

== ENCOUNTER 2023-10-17 14:23 | Emergency (ER) | payer MEDICARE ==
[2023-10-17] MEDS ORDERED: ORPHENADRINE 30 MG/ML 2 ML VIAL IM STA (15:53)
--- NOTE | 2023-10-17 15:58 | ED ---
Back Pain HPI - General Chief Complaint: Back Pain/Injury Stated Complaint: back pain Time Seen by Provider: 10/17/23 14:47 Source: patient, family Limitations: no limitations - History of Present Illness Initial Comments: 78-year-old female presenting to the ED with a chief complaint of back pain. Patient states 4 days ago, was watching football when she started to experience pain in her lower back. Denies any trauma or injury. Pain does not radiate. Pain is "pulling" in nature. Denies urinary symptoms. No incontinence or saddle anesthesia. No chest pain shortness breath. No fever or chills. No IV drug use. No other complaints. - Related Data Home Medications Medication Instructions Recorded Confirmed oxyBUTYnin chloride [Ditropan] 10 mg PO HS 12/26/14 10/05/22 Calcium(Unknown Dose) 1 tab PO DAILY 10/05/22 10/05/22 DULoxetine HCL [Cymbalta] 60 mg PO HS 10/05/22 10/05/22 Elderberry/Zinc/Vitamin D3 Chew 2 tab PO DAILY 10/05/22 10/05/22 Magnesium(Unknown Dose) 1 tab PO DAILY 10/05/22 10/05/22 Vitamin B Complex 1 cap PO DAILY 10/05/22 10/05/22 Vitamin D3(Unknown Dose) 2 cap PO DAILY 10/05/22 10/05/22 Previous Rx's Medication Instructions Recorded methocarbamoL [Robaxin] 500 mg PO TID PRN #15 tab 10/17/23 Allergies Allergy/AdvReac Type Severity Reaction Status Date / Time cyclobenzaprine Allergy Rash/Hives Verified 10/17/23 14:44 [From Flexeril] erythromycin base Allergy Unknown Verified 10/05/22 16:24 Sulfa (Sulfonamide Allergy Rash/Hives Verified 10/05/22 16:24 Antibiotics) & Nausea sulfamethoxazole Allergy Rash/Hives Verified 10/05/22 16:24 [From Bactrim] & Nausea trimethoprim [From Bactrim] Allergy Rash/Hives Verified 10/05/22 16:24 & Nausea Review of Systems ROS Statement: Those systems with pertinent positive or pertinent negative responses have been documented in the HPI. ROS Other: All systems not noted in ROS Statement are negative. Past Medical History Past Medical History: Chest Pain / Angina, Fibromyalgia, GERD/Reflux, Mitral Valve Prolapse (MVP), Neurologic Disorder Additional Past Medical History / Comment(s): restless leg, herniated di scs,vertigo History of Any Multi-Drug Resistant Organisms: None Reported Past Surgical History: Appendectomy, Hernia Repair, Hysterectomy, Orthopedic Surgery Additional Past Surgical History / Comment(s): right foot surg., pain injections, sinus surg. Past Anesthesia/Blood Transfusion Reactions: Previous Problems w/ Anesthesia Additional Past Anesthesia/Blood Transfusion Reaction / Comment(s): stopped breathing w/anesthesia during pain injections @[facility]. Past Psychological History: Depression Smoking Status: Never smoker Past Alcohol Use History: None Reported Past Drug Use History: None Reported - Past Family History Brother(s) Family Medical History: Cancer Father Additional Family Medical History / Comment(s): aortic aneurysm General Exam Limitations: no limitations General appearance: alert, in no apparent distress Neck exam: Present: normal inspection Respiratory exam: Present: normal lung sounds bilaterally Cardiovascular Exam: Present: regular rate, normal rhythm GI/Abdominal exam: Present: soft Extremities exam: Present: other (Strength and sensation equal and intact of bilateral lower extremities.) Back exam: Present: other (No midline cervical or thoracic spinal tenderness palpation. Lower midline lumbar tenderness to palpation.) Neurological exam: Present: alert, oriented X3 Skin exam: Present: warm, dry Course Vital Signs 10/17/23 14:40 Temperature 99 F Pulse Rate 65 Respiratory 16 Rate Blood Pressure 135/85 O2 Sat by Pulse 98 Oximetry Medical Decision Making - Medical Decision Making Was pt. sent in by a medical professional or institution (, PA, BLEACH SUPERVISOR, urgent care, hospital, or detention...) When possible be specific @ -No Did you speak to anyone other than the patient for history (EMS, parent, family, police, friend...)? What history was obtained from this source @ -No Did you review nursing and triage notes (agree or disagree)? Why? @ -I reviewed and agree with nursing and triage notes Were old charts reviewed (outside hosp., previous admission, EMS record, old EKG, old radiological studies, urgent care reports/EKG's, detention records)? Report findings @ -No old charts were reviewed Differential Diagnosis (chest pain, altered mental status, abdominal pain women, abdominal pain men, vaginal bleeding, weakness, fever, dyspnea, syncope, headache, dizziness, GI bleed, back pain, seizure, CVA, palpatations, mental health, musculoskeletal)? @ -Differential Back Pain: Strain, zoster, cauda equina syndrome, epidural abscess, vertebral osteomyelitis, discitis, fracture, subluxation, disc herniation, DJD, spinal stenosis, dissection, AAA, pancreatitis, peptic ulcer disease, pyelonephritis, kidney stone, this is not meant to be an all-inclusive list. EKG interpreted by me (3pts min.). @ -None X-rays interpreted by me (1pt min.). @ -Lumbar x-rays interpreted by me showing degenerative disease however no evidence of acute finding. CT interpreted by me (1pt min.). @ -None done U/S interpreted by me (1pt. min.). @ -None done What testing was considered but not performed or refused? (CT, X-rays, U/S, labs)? Why? @ -None What meds were considered but not given or refused? Why? @ -None Did you discuss the management of the patient with other professionals (professionals i.e. , PA, BLEACH SUPERVISOR, lab, RT, psych nurse, director of social work, assurance senior manager, teacher, licensed loan officer assistant, case managers)? Give summary @ -No Was smoking cessation discussed for >3mins.? @ -No Was critical care preformed (if so, how long)? @ -No Were there social determinants of health that impacted care today? How? (Homelessness, low income, unemployed, alcoholism, drug addiction, transportation, low edu. Level, literacy, decrease access to med. care, group home, rehab)? @ -No Was there de-escalation of care discussed even if they declined (Discuss DNR or withdrawal of care, Hospice)? DNR status @ -No What co-morbidities impacted this encounter? (DM, HTN, Smoking, COPD, CAD, Cancer, CVA, ARF, Chemo, Hep., AIDS, mental health diagnosis, sleep apnea, morbid obesity)? @ -None Was patient admitted / discharged? Hospital course, mention meds given and route, prescriptions, significant lab abnormalities, going to OR and other pertinent info. @ -Discharge 78-year-old female presents to the ED with a chief complaint of back pain. No trauma or injury. No saddle anesthesia or incontinence. Exam showed full strength and sensation of bilateral lower extremities. Lumbar x-ray showed no acute findings however did show evidence of degenerative changes. Patient does not follow with an orthopedic surgeon. Patient provided Norflex and had significant improvement of pain. Discharged home with prescription for Robaxin. Provided referral to see orthopedics. Discharged home in stable condition. Discussed return precautions patient verbalizes agree. Undiagnosed new problem with uncertain prognosis? @ -No Drug Therapy requiring intensive monitoring for toxicity (Heparin, Nitro, Insulin, Cardizem)? @ -No Were any procedures done? @ -No Diagnosis/symptom? @ -Back pain Acute, or Chronic, or Acute on Chronic? @ -Acute Uncomplicated (without systemic symptoms) or Complicated (systemic symptoms)? @ -Uncomplicated Side effects of treatment? @ -No Exacerbation, Progression, or Severe Exacerbation? @ -No Poses a threat to life or bodily function? How? (Chest pain, [place], [place], pneumonia, PE, COPD, DKA, ARF, appy, cholecystitis, CVA, Diverticulitis, Homicidal, Suicidal, threat to staff... and all critical care pts) @ -No - Lab Data Lab Results 10/17/23 Range/Units 15:59 Urine Color Yellow Urine Appearance Clear (Clear) Urine pH 5.0 (5.0-8.0) Ur Specific [place] 1.036 H (1.001-1.035) Urine Protein Trace H (Negative) Urine Glucose (UA) Negative (Negative) Urine Ketones Trace H (Negative) Urine Blood Negative (Negative) Urine Nitrite Negative (Negative) Urine Bilirubin Negative (Negative) Urine Urobilinogen <2.0 (<2.0) mg/dL Ur Leukocyte Esterase Small H (Negative) Urine RBC 1 (0-5) /hpf Urine WBC 4 (0-5) /hpf Ur Squamous Epith Cells 1 (0-4) /hpf Hyaline Casts 15 H (0-2) /lpf Urine Mucus Few H (None) /hpf Disposition Clinical Impression: Back pain Disposition: HOME SELF-CARE Condition: Good Instructions (If sedation given, give patient instructions): Acute Low Back Pain (ED) Additional Instructions: Please return to the Emergency Department if symptoms worsen or any other concerns. Prescriptions: methocarbamoL [Robaxin] 500 mg PO TID PRN #15 tab PRN Reason: muscle spasms Is patient prescribed a controlled substance at d/c from ED?: No Referrals: Michael Ambriz MD [Primary Care Provider] - 1-2 days Reynold Partida DO [Doctor of Osteopathic Medicine] - 1-2 days Time of Disposition: 17:33
[2023-10-17 16:48] LABS: Appearance,Urine Clear (Clear); Bilirubin,Urine Negative (Negative); Blood,Urine Negative (Negative); Color,Urine Yellow; Glucose,Urine (UA) Negative (Negative); Hyaline Casts,Urine 15 /lpf (0-2); Ketones,Urine Trace (Negative); Leukocyte Esterase,Urine Small (Negative); Mucus,Urine Few /hpf; Nitrite,Urine Negative (Negative); Protein,Urine Trace (Negative); RBC,Urine 1 /hpf (0-5); Specific Gravity,Urine 1.036 (1.001-1.035); Squamous Epithelial Cell,Urine 1 /hpf (0-4); Urobilinogen,Urine <2.0 mg/dL (<2.0); WBC,Urine 4 /hpf (0-5)
--- NOTE | 2023-10-17 16:56 | XR ---
EXAMINATION TYPE: XR lumbar spine 2 or 3V DATE OF EXAM: 10/17/2023 Comparison: None Clinical History: 78-year-old female back pain Findings: Osteopenia. Slight levoconvex curvature upper lumbar spine. 5 lumbar type vertebral bodies. Hypertrop hic facet arthropathy mid to lower lumbar spine. Moderate to advanced degenerative disc disease L2-L3 . Trace grade 1 retrolisthesis L1-L2 and L2-L3. Grade 1 anterolisthesis L4-L5. Vertebral body heights are preserved. Metastatic calcifications throughout the abdominal aorta. Impression: 1. Hypertrophic facet arthropathy mid to lower lumbar spine. Degenerative grade 1 spondylolisthesis L 1-L2, L2-L3, and L4-L5. 2. Moderate to advanced degenerative disc disease L2-L3. 3. No vertebral compression collapse.
[2023-10-17 17:52] VITALS: RESP 18; TEMP 98.3
[2023-10-17 18:16] VITALS: BP 130/76; PULSE 67
== END 2023-10-17 17:55 | disposition home or self-care (01) ==
LOC: EC 14:23
DX: M51.36 Other intervertebral disc degeneration, lumbar region (principal); F32.A Depression, unspecified; Z79.899 Other long term (current) drug therapy; Z88.1 Allergy status to other antibiotic agents; Z88.2 Allergy status to sulfonamides; Z88.8 Allergy status to other drugs, medicaments and biological substances
CPT/HCPCS: 81001; 72100; 99283; 96372; J2360

== ENCOUNTER → 2024-03-13 | Outpatient (CLI) | payer MEDICARE ==
[2024-03-13 16:10] LABS: Basophils # (A) 0.03 X 10*3/uL (0.00-0.10); Basophils % (A) 0.6 %; Eosinophils % (A) 2.1 %; HGB 13.8 g/dL (12.0-15.0); Lymphocytes # (A) 1.34 X 10*3/uL (0.90-5.00); Lymphocytes % (A) 27.7 %; MCH 31.8 pg (27.0-32.0); MCHC 31.4 g/dL (32.0-37.0); MCV 101.4 FL (80.0-97.0); Mean Platelet Volume 10.4 FL (9.5-12.2); Monocytes # (A) 0.46 X 10*3/uL (0.20-1.00); Monocytes % (A) 9.5 %; NRBC Per 100 WBC 0 X 10*3/uL (0.00-0.01); Neutrophils # (A) 2.89 X 10*3/uL (1.80-7.70); Neutrophils % (A) 59.9 %; Platelet Count 206 X 10*3/uL (140-440); RBC 4.34 X 10*6/uL (4.10-5.20); RDW 12.5 % (11.5-14.5); WBC 4.83 X 10*3/uL (4.50-10.00)
[2024-03-13 16:34] LABS: ALT 23 U/L (8-44); AST 28 U/L (13-35); Albumin 4.4 g/dL (3.8-4.9); Albumin/Globulin Ratio 1.69 Ratio (1.60-3.17); Alkaline Phosphatase 107 U/L (41-126); BUN/Creat Ratio 17.62 Ratio (12.00-20.00); Blood Urea Nitrogen 14.1 mg/dL (9.0-27.0); Calcium 9.6 mg/dL (8.7-10.3); Carbon Dioxide 20.5 mmol/L (21.6-31.8); Chloride 107 mmol/L (96-109); Chol/HDL Ratio 2.16 Ratio; Globulin 2.6 g/dL (1.6-3.3); Glucose 103 mg/dL (70-110); LDL Cholesterol,Calculated 67.6 mg/dL (0.0-131.0); Potassium 4.6 mmol/L (3.5-5.5); Sodium 141 mmol/L (135-145); Total Bilirubin 0.6 mg/dL (0.3-1.2)
== END | disposition home or self-care (01) ==
LOC: LABWHC1 10:46
PROVIDERS: ATTEND Internal Medicine
DX: E78.5 Hyperlipidemia, unspecified (principal); M47.816 Spondylosis without myelopathy or radiculopathy, lumbar region; M85.80 Other specified disorders of bone density and structure, unspecified site
CPT/HCPCS: 36415; 80053; 80061; 82306; 84443; 85025

== ENCOUNTER → 2024-08-29 | Outpatient (CLI) | payer MEDICARE ==
--- NOTE | 2024-08-29 13:11 | MR ---
EXAMINATION TYPE: MR brain wo/w con DATE OF EXAM: 08/29/2024 1:01 PM COMPARISON: NONE HISTORY: Headaches after a fall in February 16/ CONTRAST: Patient received 8ml mL intravenous Gadavist gadolinium contrast. Multiplanar and multispin-echo imaging of the brain was performed . Pre and post contrast enhanced i mages are obtained. The ventricles, basal cisterns and sulci overlying the cerebral convexities are mildly enlarged. There is evidence of mild periventricular white matter ischemic demyelination. Remote deep white matter insults are also noted. No acute edema is seen on diffusion weighted imaging. There is no evidence for midline shift or mass effect. Acute intracranial hemorrhage or extra-axial collection is not evident. No enhancing lesions are seen. The paranasal sinuses and mastoid air cells are well-aerated. IMPRESSION: Age-related atrophic and chronic small vessel ischemic change. No acute intracranial process at this time. No enhancing lesions are seen. [facility], , 08/29/2024 1:09 PM
== END | disposition home or self-care (01) ==
LOC: RADMRIMAIN 11:55
PROVIDERS: ATTEND Internal Medicine
DX: I67.82 Cerebral ischemia (principal); G31.89 Other specified degenerative diseases of nervous system; I62.9 Nontraumatic intracranial hemorrhage, unspecified
CPT/HCPCS: 70553; A9585

== ENCOUNTER → 2025-06-05 | Outpatient (CLI) | payer MEDICARE ==
--- NOTE | 2025-06-05 11:52 | MM ---
Reason for Exam: Screening (asymptomatic). Last mammogram was performed 1 year(s) and 9 month(s) ago. Patient History: Menarche at age 14. Patient has no children. Left ovary removed at age 27. Right ovary removed at age 27. Hysterectomy at age 27. Postmenopausal. Patient used Estrogen for 32 years. Patient used Hormonal Contraceptives for 7 years. Core Biopsy on the Right side. 09/29/2002, Benign Stereotactic Core Biopsy on the right side. Maternal grandmother had breast cancer, age 82. Paternal cousin had breast cancer, age 72. Sister had breast cancer, age 64. Sister had breast cancer at or over age 50. Risk Values: Manjula 5 year model risk: 8.6%. NCI Lifetime model risk: 14.0%. Prior Study Comparison: 03/10/2021 Bilateral Screening Mammogram, [facility]. 07/07/2022 Bilateral MG 3D screening mammo w/cad, [facility]. 08/27/2023 Bilateral MG 3D screening mammo w/cad, [facility]. Tissue Density: The breasts are heterogeneously dense, which may obscure small masses. Findings: Analyzed By CAD. Mammotome biopsy clip in the right breast anteriorly is redemonstrated. Stable 6 mm circumscribed round mass anteriorly in the right breast medial aspect. There is no suspicious group of microcalcifications or new suspicious mass in either breast. Overall Assessment: Benign, BI-RAD 2 Management: Screening Mammogram of both breasts in 1 year. . Patient should continue monthly self-breast exams. A clinical breast exam by your physician is recommended on an annual basis. This exam should not preclude additional follow-up of suspicious palpable abnormalities. Note on Manjula scores and lifetime risk: 1. A Manjula score greater than 3% is considered moderate risk. If this is the case, consider specialist referral to assess eligibility for a risk reducing agent. 2. If overall lifetime risk for the development of breast cancer is 20% or higher, the patient may qualify for future screening with alternating mammogram and breast MRI. [facility], , 06/05/2025 11:48 AM. Electronically signed and approved by: Vito Kapadia M.D.
== END | disposition home or self-care (01) ==
LOC: RADMAMWWP 10:55
PROVIDERS: ATTEND Internal Medicine
DX: Z12.31 Encounter for screening mammogram for malignant neoplasm of breast (principal); R92.333 Mammographic heterogeneous density, bilateral breasts; Z78.0 Asymptomatic menopausal state; Z80.3 Family history of malignant neoplasm of breast; Z92.0 Personal history of contraception
CPT/HCPCS: 77063; 77067